=== PATIENT | female | born 1955 | race Two or more races ===

== ENCOUNTER 2018-05-05 07:06 | Outpatient (CLI) | payer OTHER | END 2018-05-05 07:21 | disposition home or self-care (01) | LOC: TOM 07:06 | DX: K76.0 Fatty (change of) liver, not elsewhere classified (principal); K56.699 Other intestinal obstruction unspecified as to partial versus complete obstruction; K56.50 Intestinal adhesions [bands], unspecified as to partial versus complete obstruction; K57.90 Diverticulosis of intestine, part unspecified, without perforation or abscess without bleeding ==